=== PATIENT | female | born 1995 | race Caucasian/White ===

== ENCOUNTER 2022-05-07 11:55 | Emergency (ER) | payer BC ==
[~2022-05-07] VITALS: Ht 162.6 cm; Wt 77.3 kg
[2022-05-07 12:12] VITALS: TEMP 98.3
[2022-05-07 13:00] LABS: COLLECTION METHOD CLEAN CATCH
[2022-05-07 13:16] LABS: PH 5 (5-8); SQUAMOUS EPITHELIAL None Seen /hpf (0-10); URINE APPEARANCE Cloudy (CLEAR/HAZY); URINE BACTERIA None Seen /hpf (NONE SEEN); URINE COLOR Red (YELLOW); URINE GLUCOSE Negative (NEGATIVE); URINE KETONE Negative (NEGATIVE); URINE PROTEIN(semi-quant) 2+ (NEGATIVE); URINE RBC >50 /hpf (0-2)
[2022-05-07 13:17] LABS: URINE BLOOD 3+ (NEGATIVE); URINE NITRATE Negative (NEGATIVE); URINE UROBILINOGEN 0.2 (NEGATIVE)
[2022-05-07 13:44] LABS: BASO % 0.5 % (0.0-2.0); EOS # 0.1 K/mm3 (0.0-0.7); EOS % 1.3 % (0.0-4.0); GRAN # 4.2 K/mm3 (1.4-6.5); GRAN % 70.2 % (42.2-75.2); HEMOGLOBIN 10.2 g/dl (12.5-16.0); LYMPH # 1.2 K/mm3 (1.2-3.4); LYMPH % 20.4 % (20.0-51.0); MEAN CELL VOLUME 79 fl (80.0-100.0); MEAN CORPUSCULAR HEMOGLOBIN 25 pg (27-31); MEAN CORPUSCULAR HGB CONC 31 g/dl (33.0-37.0); MEAN PLATELET VOLUME 10.9 fl (7.4-10.4); MONO # 0.4 K/mm3 (0.1-0.6); MONO % 7.4 % (1.7-9.3); PLATELET COUNT 244 K/mm3 (130-400); RED BLOOD COUNT 4.14 M/mm3 (4.10-5.30); REDCELL DISTRIBUTION WIDTH-CV 14.4 % (11.5-14.5)
[2022-05-07 13:45] LABS: HEMATOCRIT 32.6 % (37.0-47.0)
[2022-05-07 13:57] LABS: BILIRUBIN,TOTAL 0.3 mg/dL (0.2-1.2); C-REACTIVE PROTEIN 0.48 mg/dL (0.00-0.50); CALCIUM 9.1 mg/dL (8.4-10.2); CREATININE, serum 0.71 mg/dL (0.57-1.11); POTASSIUM 3.8 mmol/L (3.5-4.5); TOTAL PROTEIN 7.3 gm/dL (6.2-8.1)
[2022-05-07] MEDS ORDERED: SPRINTEC 35 MCG1 TAB PO (14:53)
[2022-05-07 15:00] VITALS: BP 136/96; PULSE 85
[2022-05-08] MEDS ORDERED: FLAGYL500 MG PO (08:50)
[2022-05-15] MEDS ORDERED: FLAGYL500 MG PO ×2 (09:17)
== END 2022-05-07 15:04 | disposition home or self-care (01) ==
LOC: COL.ER 11:55
PROVIDERS: Emergency Medicine; Nurse Practitioner
DX: N93.9 Abnormal uterine and vaginal bleeding, unspecified (principal); Z32.02 Encounter for pregnancy test, result negative; Z28.310 Unvaccinated for COVID-19
CPT/HCPCS: J1885; J7030